=== PATIENT | male | born 1955 | race Caucasian/White ===

== ENCOUNTER 2017-12-17 11:26 | Observation (INO) | payer OTHER ==
[~2017-12-17] VITALS: Ht 188 cm; Wt 124.0 kg
[~2017-12-17 11:26] MED LIST: AMARYL1 MG PO; ASPIR-LOW81 MG PO; ASPIRIN81 M1 PO; Amaryl PO; CRESTOR5 MG PO; Feosol PO; IRON325 MG PO; LOVAZA1 GM PO; METOPROLOL TART25 MG PO; NEXIUM40 MG PO; PRILOSEC20 MG PO; PriLOSEC PO; SENOKOT S,PE1 TABLET PO; Vicodin,Norco 5/325 PO
[2017-12-17 12:18] LABS: HEMATOCRIT 49.8 % (38.0-50.0); HEMOGLOBIN 18.1 G/DL (12.5-16.6); MCH 31.5 PG (29.0-34.0); MCHC 36.3 G/DL (30.0-36.0); PLATELET COUNT 251 K/uL (156-360); RBC DIS.WIDTH-CV 12.8 % (11.8-14.6); RBC DIS.WIDTH-SD 40.2 % (39-53); RED BLOOD COUNT 5.74 M/uL (4.00-5.50)
[2017-12-17 12:22] LABS: MCV 86.8 FL (86-99)
[2017-12-17 12:27] LABS: ALBUMIN 4.4 g/dL (3.2-4.8); CHLORIDE 102 mEq/L (99-109); POTASSIUM 4.2 mEq/L (3.7-5.4); SODIUM 139 mEq/L (136-147)
[2017-12-17 12:29] LABS: GLUCOSE 110 mg/dL (70-99)
[2017-12-17 12:30] LABS: TOTAL PROTEIN 7.8 g/dL (6.4-8.3)
[2017-12-17 12:31] LABS: TOTAL BILIRUBIN 0.8 mg/dL (0.0-1.0)
[2017-12-17 12:33] LABS: ALKALINE PHOSPHATASE 85 IU/L (3-129); CREATININE 0.9 mg/dL (0.6-1.3); GFR ESTIMATE (CALCULATED) > 59 mL/min/ (58.99-99999)
[2017-12-17 12:34] LABS: UREA NITROGEN (BUN) 22 mg/dL (9-23)
[2017-12-17 12:35] LABS: AST (GOT) 24 IU/L (2-34)
[2017-12-17 12:36] LABS: ALT (GPT) 25 IU/L (3-49)
[2017-12-17 12:37] LABS: LIPASE 11 U/L (1.0-51.0)
[2017-12-17 12:39] LABS: TROP-I INTERPRETATION NEGATIVE; TROPONIN-I < 0.01 ng/mL (0.0-0.30)
[2017-12-17] MEDS ORDERED: JARDIANCE25 MG PO (16:02)
[2017-12-17] MEDS ORDERED: FISH OIL 1,2001 EAC4 PO (16:02)
[2017-12-17] MEDS ORDERED: SIMVASTATIN10 MG PO (16:02)
[2017-12-17] MEDS ORDERED: METFORMIN HCL1000 MG PO (16:02)
[2017-12-17 17:22] VITALS: BP 139/66
[2017-12-17 19:17] LABS: TROP-I INTERPRETATION NEGATIVE; TROPONIN-I < 0.01 ng/mL (0.0-0.30)
[2017-12-17 20:19] VITALS: BP 120/64
[2017-12-18 00:36] VITALS: BP 113/59
[2017-12-18 00:52] LABS: TROP-I INTERPRETATION NEGATIVE; TROPONIN-I 0.02 ng/mL (0.0-0.30)
[2017-12-18 04:35] VITALS: BP 127/71
[2017-12-18 08:19] VITALS: BP 108/74
== END 2017-12-18 12:47 | disposition home or self-care (01) ==
LOC: EME 11:26 → RME 11:26 → ENRESERV 13:55 → EDOF 14:03 → 5WEST 14:03 → ENRESERV 16:05 → 5WEST 17:15 → ENPENDDIS 12-18 → 5WEST 12-18 12:47
PROVIDERS: Internal Medicine; Physician Assistant
DX: R07.9 Chest pain, unspecified (principal); E11.9 Type 2 diabetes mellitus without complications; I47.1 Supraventricular tachycardia; I49.5 Sick sinus syndrome; Z95.0 Presence of cardiac pacemaker; I10 Essential (primary) hypertension; E78.5 Hyperlipidemia, unspecified; Z88.8 Allergy status to other drugs, medicaments and biological substances
CPT/HCPCS: 71046; 80053; 82948; 83690; 84484; 85027; 93005; 99281; 99284; G0378; J1650; J1815; J2405